=== PATIENT | female | born 1970 | race Two or more races ===

== ENCOUNTER 2019-06-22 22:38 | Emergency (ER) | payer SELFPAY ==
[~2019-06-22] VITALS: Ht 160 cm; Wt 85.3 kg
[2019-06-22 23:10] VITALS: BP 129/76
--- NOTE | 2019-06-22 23:27 | NUR ---
PT AAOX4. AMBULATORY WITH STEADY GAIT. BIBS. C/O DRY COUGH. CHILLS. LOW GRADE FEVER 99.6 X 1 DAY. PT TOOK TYLENOL AT 2100. VSS. NO ACUTE DISTRESS NOTED. AWAITING FOR MD FOR EVAL.
== END 2019-06-22 23:44 | disposition home or self-care (01) ==
LOC: ER 22:38
DX: J11.1 Influenza due to unidentified influenza virus with other respiratory manifestations (principal); B34.9 Viral infection, unspecified